=== PATIENT | male | born 1930 | race Two or more races ===

== ENCOUNTER 2017-04-18 10:45 | Outpatient (CLI) | payer OTHER | END 2017-04-18 23:59 | LOC: WOU 10:45 | PROVIDERS: ATTEND Podiatrist Foot & Ankle Surgery | DX: I70.235 Atherosclerosis of native arteries of right leg with ulceration of other part of foot (principal); L97.511 Non-pressure chronic ulcer of other part of right foot limited to breakdown of skin; I70.245 Atherosclerosis of native arteries of left leg with ulceration of other part of foot; L97.529 Non-pressure chronic ulcer of other part of left foot with unspecified severity; L03.032 Cellulitis of left toe; G62.0 Drug-induced polyneuropathy; M20.41 Other hammer toe(s) (acquired), right foot; M20.42 Other hammer toe(s) (acquired), left foot; G20 Parkinson's disease; F02.80 Dementia in other diseases classified elsewhere, unspecified severity, without behavioral disturbance, psychotic disturbance, mood disturbance, and anxiety | CPT/HCPCS: A6402; G0463 ==

== ENCOUNTER 2017-04-24 09:15 | Outpatient (CLI) | payer OTHER | END 2017-04-24 23:59 | disposition home or self-care (01) | LOC: WOU 09:15 | PROVIDERS: ATTEND Podiatrist Foot & Ankle Surgery | DX: I82.431 Acute embolism and thrombosis of right popliteal vein (principal); I70.245 Atherosclerosis of native arteries of left leg with ulceration of other part of foot; L97.529 Non-pressure chronic ulcer of other part of left foot with unspecified severity; I70.235 Atherosclerosis of native arteries of right leg with ulceration of other part of foot; L97.519 Non-pressure chronic ulcer of other part of right foot with unspecified severity; G20 Parkinson's disease; F02.80 Dementia in other diseases classified elsewhere, unspecified severity, without behavioral disturbance, psychotic disturbance, mood disturbance, and anxiety; Z98.42 Cataract extraction status, left eye; Z98.41 Cataract extraction status, right eye; M20.41 Other hammer toe(s) (acquired), right foot; M20.42 Other hammer toe(s) (acquired), left foot | CPT/HCPCS: 93970-TC; A6253; A6402; G0463 ==

== ENCOUNTER 2017-04-24 11:32 | Emergency (ER) | payer OTHER ==
[~2017-04-24] VITALS: Ht 180.3 cm; Wt 72.6 kg
--- NOTE | 2017-04-24 12:50 | NUR ---
PAGED DR FUENTES
--- NOTE | 2017-04-24 14:15 | NUR ---
Patient discharged to home in stable condition. Written and verbal after care instructions given. Patient verbalizes understanding of instruction. DC HOME WITH HIS SON
[2017-04-24 14:16] VITALS: BP 114/55
== END 2017-04-24 14:16 | disposition home or self-care (01) ==
LOC: ER 11:32
DX: I82.431 Acute embolism and thrombosis of right popliteal vein (principal); F03.90 Unspecified dementia, unspecified severity, without behavioral disturbance, psychotic disturbance, mood disturbance, and anxiety; Z88.2 Allergy status to sulfonamides
CPT/HCPCS: 99283; A4606; Z7610

== ENCOUNTER 2017-04-30 12:50 | Outpatient (CLI) | payer OTHER | END 2017-04-30 23:59 | disposition home health service (06) | LOC: VASLAB 12:50 | PROVIDERS: ATTEND Surgery Vascular Surgery | DX: I82.431 Acute embolism and thrombosis of right popliteal vein (principal); L97.525 Non-pressure chronic ulcer of other part of left foot with muscle involvement without evidence of necrosis; L97.512 Non-pressure chronic ulcer of other part of right foot with fat layer exposed; M20.42 Other hammer toe(s) (acquired), left foot; M20.41 Other hammer toe(s) (acquired), right foot; Z79.01 Long term (current) use of anticoagulants | CPT/HCPCS: 99213; A6402; G0463 ==

== ENCOUNTER 2017-05-02 10:35 | Outpatient (CLI) | payer OTHER | END 2017-05-02 23:59 | disposition home health service (06) | LOC: WOU 10:35 | PROVIDERS: ATTEND Podiatrist Foot & Ankle Surgery | DX: I70.245 Atherosclerosis of native arteries of left leg with ulceration of other part of foot (principal); L97.522 Non-pressure chronic ulcer of other part of left foot with fat layer exposed; G20 Parkinson's disease; M20.41 Other hammer toe(s) (acquired), right foot; M20.42 Other hammer toe(s) (acquired), left foot; L03.032 Cellulitis of left toe; F02.80 Dementia in other diseases classified elsewhere, unspecified severity, without behavioral disturbance, psychotic disturbance, mood disturbance, and anxiety; I69.320 Aphasia following cerebral infarction; I82.401 Acute embolism and thrombosis of unspecified deep veins of right lower extremity | CPT/HCPCS: 11042; A6402; A6253 ==

== ENCOUNTER → 2017-05-09 | Outpatient (CLI) | payer OTHER | END | disposition home health service (06) | LOC: WOU 11:20 | PROVIDERS: ATTEND Podiatrist Foot & Ankle Surgery | DX: I70.202 Unspecified atherosclerosis of native arteries of extremities, left leg (principal); G20 Parkinson's disease; F02.80 Dementia in other diseases classified elsewhere, unspecified severity, without behavioral disturbance, psychotic disturbance, mood disturbance, and anxiety; Z98.42 Cataract extraction status, left eye; Z98.41 Cataract extraction status, right eye; I82.401 Acute embolism and thrombosis of unspecified deep veins of right lower extremity | CPT/HCPCS: G0463 ==

== ENCOUNTER 2017-05-20 09:17 | Outpatient (CLI) | payer OTHER | END 2017-05-20 23:59 | disposition home or self-care (01) | LOC: WOU 09:17 | PROVIDERS: ATTEND Podiatrist Foot & Ankle Surgery | DX: Z09 Encounter for follow-up examination after completed treatment for conditions other than malignant neoplasm (principal); M20.42 Other hammer toe(s) (acquired), left foot; M20.41 Other hammer toe(s) (acquired), right foot; G20 Parkinson's disease; I73.9 Peripheral vascular disease, unspecified | CPT/HCPCS: G0463 ==

== ENCOUNTER 2017-07-02 10:07 | Outpatient (CLI) | payer OTHER ==
[~2017-07-02 10:07] MED LIST: MEPERIDINE HCL/PF 50 MG/ML DISP.SYRIN ONE
== END 2017-07-02 23:59 | disposition home or self-care (01) ==
LOC: WOU 10:07
PROVIDERS: ATTEND Podiatrist Foot & Ankle Surgery
DX: T14.8XXD Other injury of unspecified body region, subsequent encounter (principal); X58.XXXD Exposure to other specified factors, subsequent encounter; Z86.718 Personal history of other venous thrombosis and embolism; M79.89 Other specified soft tissue disorders
CPT/HCPCS: 93971-TC; A6253; A6402; J2175

== ENCOUNTER 2017-07-02 12:50 | Outpatient (CLI) | payer OTHER | END 2017-07-02 23:59 | disposition home or self-care (01) | LOC: VASLAB 12:50 | PROVIDERS: ATTEND Surgery Vascular Surgery | DX: I87.311 Chronic venous hypertension (idiopathic) with ulcer of right lower extremity (principal); L97.519 Non-pressure chronic ulcer of other part of right foot with unspecified severity; R60.0 Localized edema; Z86.718 Personal history of other venous thrombosis and embolism; Z79.01 Long term (current) use of anticoagulants | CPT/HCPCS: 99213; A6253; A6402; G0463 ==

== ENCOUNTER 2017-07-04 12:00 | Outpatient (CLI) | payer OTHER | END 2017-07-04 23:59 | disposition home health service (06) | LOC: WOU 12:00 | PROVIDERS: ATTEND Podiatrist Foot & Ankle Surgery | DX: I70.235 Atherosclerosis of native arteries of right leg with ulceration of other part of foot (principal); L97.516 Non-pressure chronic ulcer of other part of right foot with bone involvement without evidence of necrosis; Z86.718 Personal history of other venous thrombosis and embolism; L03.115 Cellulitis of right lower limb; M20.61 Acquired deformities of toe(s), unspecified, right foot; Z98.42 Cataract extraction status, left eye; Z98.41 Cataract extraction status, right eye; F03.90 Unspecified dementia, unspecified severity, without behavioral disturbance, psychotic disturbance, mood disturbance, and anxiety; Z88.2 Allergy status to sulfonamides; I69.320 Aphasia following cerebral infarction; G20 Parkinson's disease | CPT/HCPCS: 11044; A6253; A6402 ==

== ENCOUNTER 2017-07-11 11:31 | Outpatient (CLI) | payer OTHER | END 2017-07-11 23:59 | disposition home health service (06) | LOC: WOU 11:31 | PROVIDERS: ATTEND Podiatrist Foot & Ankle Surgery | DX: I70.245 Atherosclerosis of native arteries of left leg with ulceration of other part of foot (principal); L97.526 Non-pressure chronic ulcer of other part of left foot with bone involvement without evidence of necrosis; Z86.718 Personal history of other venous thrombosis and embolism; M20.61 Acquired deformities of toe(s), unspecified, right foot; G20 Parkinson's disease; F02.80 Dementia in other diseases classified elsewhere, unspecified severity, without behavioral disturbance, psychotic disturbance, mood disturbance, and anxiety; Z98.42 Cataract extraction status, left eye; Z98.41 Cataract extraction status, right eye; I69.320 Aphasia following cerebral infarction; Z79.01 Long term (current) use of anticoagulants | CPT/HCPCS: 11042; A6253; A6402 ==

== ENCOUNTER 2017-07-18 12:04 | Outpatient (CLI) | payer OTHER | END 2017-07-18 23:59 | disposition home health service (06) | LOC: WOU 12:04 | PROVIDERS: ATTEND Podiatrist Foot & Ankle Surgery | DX: I70.235 Atherosclerosis of native arteries of right leg with ulceration of other part of foot (principal); L97.512 Non-pressure chronic ulcer of other part of right foot with fat layer exposed; Z86.718 Personal history of other venous thrombosis and embolism; L98.0 Pyogenic granuloma; M20.61 Acquired deformities of toe(s), unspecified, right foot; G20 Parkinson's disease; F02.80 Dementia in other diseases classified elsewhere, unspecified severity, without behavioral disturbance, psychotic disturbance, mood disturbance, and anxiety; I69.320 Aphasia following cerebral infarction; Z98.42 Cataract extraction status, left eye; Z98.41 Cataract extraction status, right eye; Z79.01 Long term (current) use of anticoagulants | CPT/HCPCS: A6253; A6402; G0463 ==

== ENCOUNTER 2017-07-29 11:47 | Outpatient (CLI) | payer OTHER | END 2017-07-29 23:59 | disposition home health service (06) | LOC: WOU 11:47 | PROVIDERS: ATTEND Podiatrist Foot & Ankle Surgery | DX: I70.235 Atherosclerosis of native arteries of right leg with ulceration of other part of foot (principal); L97.512 Non-pressure chronic ulcer of other part of right foot with fat layer exposed; L98.0 Pyogenic granuloma; Z86.718 Personal history of other venous thrombosis and embolism; M20.61 Acquired deformities of toe(s), unspecified, right foot; G20 Parkinson's disease; F02.80 Dementia in other diseases classified elsewhere, unspecified severity, without behavioral disturbance, psychotic disturbance, mood disturbance, and anxiety; Z98.42 Cataract extraction status, left eye; Z98.41 Cataract extraction status, right eye; Z86.73 Personal history of transient ischemic attack (TIA), and cerebral infarction without residual deficits; Z79.01 Long term (current) use of anticoagulants | CPT/HCPCS: 11042; A6253; A6402 ==

== ENCOUNTER 2017-08-05 11:14 | Outpatient (CLI) | payer OTHER | END 2017-08-05 23:59 | disposition home health service (06) | LOC: WOU 11:14 | PROVIDERS: ATTEND Podiatrist Foot & Ankle Surgery | DX: I70.235 Atherosclerosis of native arteries of right leg with ulceration of other part of foot (principal); L97.512 Non-pressure chronic ulcer of other part of right foot with fat layer exposed; L98.0 Pyogenic granuloma; Z86.718 Personal history of other venous thrombosis and embolism; M20.61 Acquired deformities of toe(s), unspecified, right foot; G20 Parkinson's disease; F02.80 Dementia in other diseases classified elsewhere, unspecified severity, without behavioral disturbance, psychotic disturbance, mood disturbance, and anxiety; Z86.73 Personal history of transient ischemic attack (TIA), and cerebral infarction without residual deficits; Z79.01 Long term (current) use of anticoagulants | CPT/HCPCS: 11042; A6253; A6402 ==

== ENCOUNTER 2017-08-12 11:45 | Outpatient (CLI) | payer OTHER | END 2017-08-12 23:59 | disposition home health service (06) | LOC: WOU 11:45 | PROVIDERS: ATTEND Podiatrist Foot & Ankle Surgery | DX: I70.235 Atherosclerosis of native arteries of right leg with ulceration of other part of foot (principal); L97.512 Non-pressure chronic ulcer of other part of right foot with fat layer exposed; M20.42 Other hammer toe(s) (acquired), left foot; M20.41 Other hammer toe(s) (acquired), right foot; L98.0 Pyogenic granuloma; Z86.718 Personal history of other venous thrombosis and embolism; M20.61 Acquired deformities of toe(s), unspecified, right foot; I69.320 Aphasia following cerebral infarction; G20 Parkinson's disease; F02.80 Dementia in other diseases classified elsewhere, unspecified severity, without behavioral disturbance, psychotic disturbance, mood disturbance, and anxiety; Z79.01 Long term (current) use of anticoagulants; Z79.899 Other long term (current) drug therapy | CPT/HCPCS: 99213; A6253; A6402; G0463 ==

== ENCOUNTER 2017-08-19 11:25 | Outpatient (CLI) | payer OTHER | END 2017-08-19 23:59 | disposition home health service (06) | LOC: WOU 11:25 | PROVIDERS: ATTEND Podiatrist Foot & Ankle Surgery | DX: I70.202 Unspecified atherosclerosis of native arteries of extremities, left leg (principal); Z86.718 Personal history of other venous thrombosis and embolism; M20.61 Acquired deformities of toe(s), unspecified, right foot; F03.90 Unspecified dementia, unspecified severity, without behavioral disturbance, psychotic disturbance, mood disturbance, and anxiety; I69.320 Aphasia following cerebral infarction; Z79.01 Long term (current) use of anticoagulants; Z79.899 Other long term (current) drug therapy | CPT/HCPCS: G0463 ==

== ENCOUNTER 2017-10-03 11:30 | Outpatient (CLI) | payer OTHER | END 2017-10-03 23:59 | disposition home or self-care (01) | LOC: WOU 11:30 | PROVIDERS: ATTEND Podiatrist Foot & Ankle Surgery | DX: S91.115A Laceration without foreign body of left lesser toe(s) without damage to nail, initial encounter (principal); X58.XXXA Exposure to other specified factors, initial encounter; Y92.89 Other specified places as the place of occurrence of the external cause; F03.90 Unspecified dementia, unspecified severity, without behavioral disturbance, psychotic disturbance, mood disturbance, and anxiety; G20 Parkinson's disease; I69.320 Aphasia following cerebral infarction; Z88.2 Allergy status to sulfonamides; Z98.42 Cataract extraction status, left eye; Z98.41 Cataract extraction status, right eye; Z86.718 Personal history of other venous thrombosis and embolism; M20.61 Acquired deformities of toe(s), unspecified, right foot | CPT/HCPCS: A6402; G0463; Z7610 ==

== ENCOUNTER 2017-10-10 11:18 | Outpatient (CLI) | payer OTHER | END 2017-10-10 23:59 | disposition home or self-care (01) | LOC: WOU 11:18 | PROVIDERS: ATTEND Podiatrist Foot & Ankle Surgery | DX: S91.115D Laceration without foreign body of left lesser toe(s) without damage to nail, subsequent encounter (principal); X58.XXXD Exposure to other specified factors, subsequent encounter; G20 Parkinson's disease; F02.80 Dementia in other diseases classified elsewhere, unspecified severity, without behavioral disturbance, psychotic disturbance, mood disturbance, and anxiety; I69.320 Aphasia following cerebral infarction; Z86.718 Personal history of other venous thrombosis and embolism; M20.61 Acquired deformities of toe(s), unspecified, right foot; Z79.01 Long term (current) use of anticoagulants | CPT/HCPCS: A6402; G0463; Z7610 ==

== ENCOUNTER 2017-10-14 11:15 | Outpatient (CLI) | payer OTHER | END 2017-10-14 23:59 | disposition home or self-care (01) | LOC: WOU 11:15 | PROVIDERS: ATTEND Surgery Vascular Surgery | DX: I82.401 Acute embolism and thrombosis of unspecified deep veins of right lower extremity (principal) | CPT/HCPCS: 93971-TC; Z7610 ==

== ENCOUNTER 2020-02-21 13:20 | Emergency (ER) | payer OTHER ==
[~2020-02-21] VITALS: Ht 172.7 cm; Wt 74.4 kg
[2020-02-21] MEDS ORDERED: TRIA15OI9 TP (13:35)
[2020-02-21] MEDS ORDERED: MINE454C11 TP (13:35)
[2020-02-21] MEDS ORDERED: LOPE-195 PO (13:35)
[2020-02-21] MEDS ORDERED: [UNRECOGNIZED DRUG - CODE] TP (13:35)
[2020-02-21] MEDS ORDERED: CARB-93 PO (13:35)
[2020-02-21] MEDS ORDERED: LEVE500T9 PO (13:35)
[2020-02-21] MEDS ORDERED: POLY15DR40 EACHEYE (13:35)
[2020-02-21] MEDS ORDERED: APIX5TAB PO (13:35)
[2020-02-21] MEDS ORDERED: ACET-2605 PO (13:35)
[2020-02-21] MEDS ORDERED: MAGN400O6 PO (13:35)
[2020-02-21] MEDS ORDERED: DOCU-141 PO (13:35)
[2020-02-21] MEDS ORDERED: ASCO-352 PO (13:35)
--- NOTE | 2020-02-21 14:07 | NUR ---
YANCI FROM [facility] TO ER BED 6. NON VERBAL, RESPONSIVE TO TACTILE STIMULI. NOT IN RESP DISTRESS, BREATHING EVEN AND UNLABORED. BROUGHT IN FOR COUGH AND CONGESTION. PT IS NOTED WITH NON PRODUCTIVE. PT IS AFEBRILE, RECTAL TEMP NOTED @ 98.4. MD WAS AT THE BEDSIDE FOR EVAL. ORDERS RECEIVED NOTED AND CARRIED OUT. IV LINE ESTABLISHED ON LFA 20G. BLOOD DRAWN AND GIVEN TO ONLINE MERCHANDISER AT BEDSIDE. COVID SWAB DONE BOTH ANTIGEN AND PCR. WILL CONTINUE TO MONITOR.
[2020-02-21 14:13] LABS: BASOPHILS % (AUTO) 0.4 % (0.0-2.0); EOSINOPHILS % (AUTO) 5.2 % (0.0-6.0); HEMATOCRIT 47 % (39-51); HEMOGLOBIN 15.5 g/dL (13.5-17.5); LYMPHOCYTES # (AUTO) 1.6 /CMM (0.8-4.8); LYMPHOCYTES % (AUTO) 17.2 % (20.0-44.0); MEAN CORPUSCULAR HGB CONC 33 g/dl (31.0-36.0); MEAN CORPUSCULAR VOLUME 96 fL (80-96); MONOCYTES # (AUTO) 0.7 /CMM (0.1-1.30); MONOCYTES % (AUTO) 7.8 % (2.0-12.0); NEUTROPHILS # (AUTO) 6.5 /CMM (1.8-8.9); NEUTROPHILS % (AUTO) 69.4 % (43.0-81.0); PLATELET COUNT (AUTO) 273 /CMM (150-450); RED BLOOD CELL COUNT(AUTO) 4.87 MIL/uL (4.5-6.0); WHITE BLOOD COUNT (AUTO) 9.4 K/uL (4.3-11.0)
[2020-02-21 14:19] LABS: CALCIUM, SERUM 8.7 mg/dL (8.5-10.1); CARBON DIOXIDE 28 mmol/L (21-32); CHLORIDE 102 mmol/L (98-107); CREATININE 0.9 mg/dL (0.6-1.3); GLUCOSE 97 mg/dL (74-106); POTASSIUM 4.5 mmol/L (3.5-5.1); SODIUM SERUM 137 mmol/L (136-145); UREA NITROGEN, BLOOD 18 mg/dL (7-18)
[2020-02-21 14:32] LABS: ALANINE AMINOTRANSFERASE 11 U/L (12-78); ALBUMIN 2.9 g/dL (3.4-5.0); ALKALINE PHOSPHATASE 126 U/L (46-116); ASPARTATE AMINOTRANSFERASE 22 U/L (15-37); B-TYPE NATRIURETIC PEPTIDE 357 PG/ML (0-125); BILIRUBIN,DIRECT 0.1 mg/dL (0.0-0.2); BILIRUBIN,TOTAL 0.3 mg/dL (0.2-1.0); TOTAL PROTEIN, SERUM 7.4 g/dL (6.4-8.2)
--- NOTE | 2020-02-21 14:52 | NUR ---
PT SON LILLIAM [phone]
--- NOTE | 2020-02-21 15:30 | NUR ---
July, [facility]CISION JIG GRINDER [phone]
--- NOTE | 2020-02-21 15:53 | NUR ---
TALIA PEREZ AT 1700 TO [facility] C/O NICHO.
--- NOTE | 2020-02-21 16:31 | NUR ---
SON LILLIAM UPDATED THAT HIS FATHER IS GOING BACK TO [facility].
--- NOTE | 2020-02-21 17:11 | NUR ---
IV removed. Catheter intact and site benign. Pressure and 4x4 applied to site. No bleeding noted.
--- NOTE | 2020-02-21 17:12 | NUR ---
Patient discharged to [facility] in stable condition. Written and verbal after care instructions given. Private ambulance verbalizes understanding of instruction. Document given to EMS to be given to the facility.
[2020-02-21 17:16] VITALS: BP 139/52
== END 2020-02-21 17:16 ==
LOC: ER 13:23
DX: G20 Parkinson's disease (principal); F02.80 Dementia in other diseases classified elsewhere, unspecified severity, without behavioral disturbance, psychotic disturbance, mood disturbance, and anxiety; R47.01 Aphasia; R05 Cough; Z20.828 Contact with and (suspected) exposure to other viral communicable diseases
CPT/HCPCS: 36415; 71045; 80048; 80076; 83880; 84145; 84484; 85025; 87040 ×2; 87426; 99284; C9803; U0003